=== PATIENT | female | born 1950 ===

== ENCOUNTER 2025-01-14 11:00 | Outpatient (RCR) | payer MEDICARE | END 2025-01-16 | LOC: RESP 11:00 | PROVIDERS: ATTEND Internal Medicine Pulmonary Disease | DX: J44.9 Chronic obstructive pulmonary disease, unspecified (principal) | CPT/HCPCS: 94626; 94799; G0238 ==

== ENCOUNTER 2025-04-08 11:00 | Outpatient (RCR) | payer MEDICARE | END 2025-04-18 | LOC: RESP 11:00 | PROVIDERS: ATTEND Internal Medicine Pulmonary Disease | DX: J44.9 Chronic obstructive pulmonary disease, unspecified (principal) | CPT/HCPCS: 94626 ×2; G0238 ×2 ==